=== PATIENT | female | born 1970 | race Caucasian/White ===

== ENCOUNTER → 2019-05-08 | Outpatient (CLI) | payer OTHER ==
--- NOTE | 2019-05-08 15:05 | PCVCIMAG ---
APPROVED REPORT Study performed: 05/08/2019 12:54:39 EXAM: Comprehensive 2D, Doppler, and color-flow Echocardiogram Patient Location: Echo lab Room #: 2Status: routine BSA: 1.77 HR: 76 bpmBP: 118/78 mmHg Rhythm: NSR Other Information Study Quality: Good Risk Factors: Cardiac Risk Factors: FHX of CAD, HTN Indications Palpitations Hypertension/HDD 2D Dimensions IVSd: 6.82 (7-11mm)LVOT Diam: 19.65 (18-24mm) LVDd: 42.12 mm PWd: 9.90 (7-11mm) LVDs: 25.39 (25-40mm) Left Atrium: 35.41 (27-40mm) Aortic Root: 24.27 mm LV Single Plane 4CH: 56.44 % LV Single Plane 2CH: 60.95 % Biplane EF: 57.0 % Volumes Left Atrial Volume (Systole) Single Plane 4CH: 39.81 mLSingle Plane 2CH: 45.56 mL Biplane LA Volume: 44.00 mLLA ESV Index: 25.00 mL/m2 Aortic Valve AoV Peak Stewart.: 1.30 m/s AO Peak Gr.: 6.86 mmHgLVOT Max P.86 mmHg LVOT Max V: 0.68 m/s GEOFF Vmax: 1.59 cm2 Mitral Valve E/A Ratio: 1.3 MV Decel. Time: 167.29 ms MV E Max Stewart.: 0.84 m/s MV A Stewart.: 0.65 m/s IVRT: 76.12 ms TDI E/Lateral E': 8.40E/Medial E': 10.50 Medial E' Stewart.: 0.08 m/s Lateral E' Stewart.: 0.10 m/s Pulmonary Valve PV Peak Stewart.: 0.91 m/sPV Peak Gr.: 3.33 mmHg Pulmonary Vein P Vein S: 0.46 m/sP Vein A: 0.26 m/s P Vein D: 0.56 m/sP Vein A Dur.: 76.1 msec P Vein S/D Ratio: 0.82 Tricuspid Valve TR Peak Stewart.: 1.89 m/s TR Peak Gr.: 14.26 mmHg TV Vmax: 0.58 m/sPA Pressure: 21.00 mmHg Left Ventricle The left ventricle is normal size. There is normal LV segmental wall motion. There is normal left ventricular wall thickness. Left ventricular systolic function is normal. The left ventricular ejection fraction is within the normal range. LVEF is 55-60%. The left ventricular diastolic function is normal. Right Ventricle The right ventricle is normal size. The right ventricular systolic function is normal. Atria The left atrium size is normal. The right atrium size is normal. Aortic Valve Aortic valve is trileaflet, normal in structure and function. No aortic regurgitation is present. There is no aortic valvular stenosis. Mitral Valve The mitral valve is normal in structure. Trace mitral regurgitation. No evidence of mitral valve stenosis. Tricuspid Valve The tricuspid valve is normal in structure. Trace tricuspid regurgitation. No pulmonary hypertension. Pulmonic Valve The pulmonary valve is normal in structure. There is no pulmonic valvular regurgitation. Great Vessels The aortic root is normal in size. The ascending aorta is normal in size. Aortic arch is normal in caliber. IVC is normal in size and collapses >50% with inspiration. Pericardium There is no pericardial effusion. There is no pleural effusion. <Conclusion> Left ventricular systolic function is normal. There is normal LV segmental wall motion. LVEF is 55-60%. Aortic valve is trileaflet, normal in structure and function. No aortic regurgitation or stenosis. The mitral valve is normal in structure. Trace mitral regurgitation Pulmonary artery pressure could not be reliably ascertained. There is no pericardial effusion.
--- NOTE | 2019-05-08 15:09 | PCVCIMAG ---
APPROVED REPORT Patient Location: Echo lab- [facility]ESS TEST Room #: 2 Stress Nurse: Melvi Sylvester RN INDICATIONS: Frequent PVCs, Family Hx CAD The patient exercised according to the EFRA protocol for 9:20 mins; achieving a work level of 11.2 METS. The resting heart rate of 73 bpm rene to a maximum heart rate of 162 bpm. This value represents 94% of the maximal, age-predicted heart rate. The resting blood pressure of 118/78 mmHg, rene to a maximum blood pressure of 158/78 mmHg. The exercise test was stopped due to fatigue. Resting EKG normal sinus rhythm normal tracing Stress EKG: Rare isolated premature ventricular complexes. No ST segment shifts diagnostic of myocardial ischemia. Conclusion 1. Maximal treadmill exercise study negative for exercise-induced myocardial ischemia. 2. No subjective signs of ischemia. No diagnostic ischemic electrocardiographic changes. The study was associated with good exercise capacity (11.2 METS). Low Acevedo treadmill exercise score
== END | disposition home or self-care (01) ==
LOC: PCVCIMAG 13:11
PROVIDERS: ATTEND Internal Medicine
DX: I48.91 Unspecified atrial fibrillation (principal); I10 Essential (primary) hypertension; E05.00 Thyrotoxicosis with diffuse goiter without thyrotoxic crisis or storm; E78.5 Hyperlipidemia, unspecified; I49.3 Ventricular premature depolarization; K21.9 Gastro-esophageal reflux disease without esophagitis; E89.0 Postprocedural hypothyroidism; J45.909 Unspecified asthma, uncomplicated; Z82.49 Family history of ischemic heart disease and other diseases of the circulatory system; Z90.49 Acquired absence of other specified parts of digestive tract; Z90.09 Acquired absence of other part of head and neck; Z90.710 Acquired absence of both cervix and uterus; Z83.3 Family history of diabetes mellitus; Z88.8 Allergy status to other drugs, medicaments and biological substances
CPT/HCPCS: 93017; 93306